=== PATIENT | female | born 1950 | race Two or more races ===

== ENCOUNTER 2018-12-23 12:20 | Outpatient (CLI) | payer MEDICARE, OTHER ==
--- NOTE | 2018-12-25 00:24 | XRAY Report ---
Reason: RT FOOT PX Procedure Date: 12/23/2018 Accession Number: [id number] / [id number] Procedure: XR - Foot 3 View RT CPT Code: FULL RESULT: EXAM: RIGHT FOOT PAIN AND SWELLING. FOOT RADIOGRAPHY EXAM DATE: 12/23/2018 01:33 PM. CLINICAL HISTORY: Right foot pain. COMPARISON: None. TECHNIQUE: 3 views. FINDINGS: Bones: Normal. No fractures or bone lesions. Joints: Normal. No subluxations. Soft Tissues: Unremarkable. IMPRESSION: Normal foot radiography. [facility]
== END 2018-12-23 12:21 | disposition home or self-care (01) ==
LOC: DI 12:20
PROVIDERS: ATTEND Nurse Practitioner Family
DX: M79.672 Pain in left foot (principal)